=== PATIENT | male | born 2000 | race Caucasian/White ===

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

== ENCOUNTER 2023-01-07 08:27 | Emergency (ER) | payer MEDICAID ==
[~2023-01-07] VITALS: Ht 188 cm; Wt 115.9 kg
[2023-01-07 09:26] LABS: Basophils # (auto) 0 10 ^3/uL (0-0.2); Basophils % (auto) 0.4 % (0.0-2.0); Eosinophils # (auto) 0.1 10 ^3/uL (0-0.8); Hematocrit 45.3 % (41.0-53.0); Hemoglobin 15.9 g/dL (13.5-17.5); Lymphocytes # (auto) 2.6 10 ^3/uL (0.4-5.4); Mean Corpuscular Hemoglobin 30.2 pg (28.0-32.0); Mean Corpuscular Volume 86.2 fL (80.0-100.0); Monocytes # (auto) 0.4 10 ^3/uL (0-1.3); Monocytes % (auto) 7.6 % (0.0-12.0); Neutrophils # (auto) 1.8 10 ^3/uL (1.6-8.6); Nucleated Red Blood Cells % 0.3 %; Red Blood Cells 5.26 10^6/uL (4.5-5.90); Red Cell Distribution Width 12.6 % (11.8-14.3); White Blood Cell 4.8 10^3/uL (4.4-10.8)
[2023-01-07 09:49] LABS: Albumin 3.8 g/dL (3.4-5.0); Calcium 8.7 mg/dL (8.5-10.1); Potassium 3.4 mmol/L (3.5-5.1)
[2023-01-07 09:53] LABS: BUN/Creatinine Ratio 11.7; Bilirubin, Total 0.3 mg/dL (0.2-1.0); Total Protein 6.9 g/dL (6.4-8.2)
[2023-01-07] MEDS ORDERED: SODIUM CHLORIDE 0.9% 250 ML IV ONE (10:45)
[2023-01-07 14:54] VITALS: BP 102/66
== END 2023-01-07 14:56 | disposition home or self-care (01) ==
LOC: ER 08:27 → EDBD 08:27 → ER 14:55
DX: S00.93XA Contusion of unspecified part of head, initial encounter (principal); E11.649 Type 2 diabetes mellitus with hypoglycemia without coma; R56.9 Unspecified convulsions; E78.5 Hyperlipidemia, unspecified; F20.9 Schizophrenia, unspecified; F84.0 Autistic disorder; F31.9 Bipolar disorder, unspecified; W18.39XA Other fall on same level, initial encounter; Y93.89 Activity, other specified; Y92.89 Other specified places as the place of occurrence of the external cause; Y99.8 Other external cause status
CPT/HCPCS: 36415; 70450; 72125; 80053; 85025; 96365; 96366; 99285; J1953; J7030; J7060

== ENCOUNTER 2023-01-28 02:38 | Emergency (ER) | payer MEDICAID ==
[~2023-01-28] VITALS: Ht 167.6 cm; Wt 110.0 kg
[2023-01-28] MEDS ORDERED: LACTATED RINGER'S 1,000 ML IV ONE (03:45)
[2023-01-28] MEDS ORDERED: levETIRAcetam 500 MG/5ML INJ IV ONE (04:00)
[2023-01-28 04:30] LABS: Albumin 3.5 g/dL (3.4-5.0); Calcium 8.6 mg/dL (8.5-10.1); Potassium 3.1 mmol/L (3.5-5.1)
[2023-01-28 04:33] LABS: Bilirubin, Total 0.2 mg/dL (0.2-1.0); Total Protein 6.4 g/dL (6.4-8.2)
[2023-01-28 05:14] LABS: Basophils # (auto) 0 10 ^3/uL (0-0.2); Basophils % (auto) 0.5 % (0.0-2.0); Eosinophils # (auto) 0 10 ^3/uL (0-0.8); Eosinophils % (auto) 0.4 % (0.0-7.0); Hemoglobin 14.7 g/dL (13.5-17.5); Lymphocytes # (auto) 2.8 10 ^3/uL (0.4-5.4); Lymphocytes % (auto) 35.5 % (10.0-50.0); Mean Corpuscular Hemoglobin 29.8 pg (28.0-32.0); Mean Corpuscular Volume 85.4 fL (80.0-100.0); Monocytes # (auto) 0.5 10 ^3/uL (0-1.3); Monocytes % (auto) 6.7 % (0.0-12.0); Neutrophils # (auto) 4.5 10 ^3/uL (1.6-8.6); Neutrophils % (auto) 56.9 % (37.0-80.0); Nucleated Red Blood Cells % 0.6 %; Red Blood Cells 4.92 10^6/uL (4.5-5.90); White Blood Cell 7.9 10^3/uL (4.4-10.8)
[2023-01-28] MEDS ORDERED: POTASSIUM EFFERVESENT TAB 25 MEQ PO ONE (05:30)
[2023-01-28 08:05] VITALS: BP 113/57
== END 2023-01-28 08:13 | disposition home or self-care (01) ==
LOC: ER 02:38 → EDBD 02:38 → ER 08:06
DX: R56.9 Unspecified convulsions (principal); E87.6 Hypokalemia; E11.9 Type 2 diabetes mellitus without complications; E78.5 Hyperlipidemia, unspecified; F20.9 Schizophrenia, unspecified; F84.0 Autistic disorder
CPT/HCPCS: 36415; 70450; 71045; 80053; 82962; 83690; 85025; 93005; 96361; 96365; 99285; J1953; J7060

== ENCOUNTER 2023-02-27 10:54 | Emergency (ER) | payer OTHER, MEDICAID ==
[~2023-02-27] VITALS: Ht 180.3 cm; Wt 113.6 kg
[2023-02-27 11:33] LABS: Basophils # (auto) 0 10 ^3/uL (0-0.2); Basophils % (auto) 0.4 % (0.0-2.0); Eosinophils # (auto) 0.1 10 ^3/uL (0-0.8); Hemoglobin 15.2 g/dL (13.5-17.5); Lymphocytes # (auto) 2.6 10 ^3/uL (0.4-5.4); Lymphocytes % (auto) 48.3 % (10.0-50.0); Mean Corpuscular Hemoglobin 29.7 pg (28.0-32.0); Mean Corpuscular Hgb Conc. 33.7 g/dL (32.0-36.0); Mean Corpuscular Volume 88.2 fL (80.0-100.0); Monocytes # (auto) 0.4 10 ^3/uL (0-1.3); Monocytes % (auto) 7.4 % (0.0-12.0); Neutrophils # (auto) 2.3 10 ^3/uL (1.6-8.6); Neutrophils % (auto) 42.9 % (37.0-80.0); Nucleated Red Blood Cells % 0.1 %; Red Cell Distribution Width 13.2 % (11.8-14.3); White Blood Cell 5.3 10^3/uL (4.4-10.8)
[2023-02-27 12:09] LABS: Anion Gap 4 (5-15); Blood Alcohol < 3.0 mg/dL (0-5); Blood Urea Nitrogen 14 mg/dL (7-18); Calcium 9.3 mg/dL (8.5-10.1); Carbon Dioxide 23 mmol/L (21-32); Chloride 112 mmol/L (98-107); Glucose 85 mg/dL (74-106); Potassium 4.1 mmol/L (3.5-5.1); Sodium 139 mmol/L (136-145)
[2023-02-27 12:11] LABS: Alanine Aminotransferase 39 U/L (16-61); Alkaline Phosphatase 91 U/L (45-117); Aspartate Aminotransferase 28 U/L (15-37); BUN/Creatinine Ratio 12.4 (10.0-20.0); Bilirubin, Total 0.2 mg/dL (0.2-1.0); GFR African American 106 mL/min; GFR Non-African American 88 mL/min; Total Protein 7.2 g/dL (6.4-8.2)
[2023-02-27 14:48] VITALS: BP 123/61
== END 2023-02-27 14:57 | disposition home or self-care (01) ==
LOC: EDBD 10:54 → ER 10:54
DX: G40.909 Epilepsy, unspecified, not intractable, without status epilepticus (principal); E11.9 Type 2 diabetes mellitus without complications; F20.9 Schizophrenia, unspecified; E78.5 Hyperlipidemia, unspecified
CPT/HCPCS: 36415; 70450; 80053; 80320; 82962; 85025

== ENCOUNTER 2023-10-20 03:49 | Emergency (ER) | payer MEDICAID ==
[~2023-10-20] VITALS: Ht 190.5 cm; Wt 100.0 kg
[2023-10-20 04:21] VITALS: PULSE 99; RESP 18; TEMP 97.8; O2SAT 99
[2023-10-20 04:39] LABS: Basophils # (auto) 0 10 ^3/uL (0-0.2); Basophils % (auto) 0.4 % (0.0-2.0); Eosinophils # (auto) 0.1 10 ^3/uL (0-0.8); Eosinophils % (auto) 1.1 % (0.0-7.0); Hematocrit 44.2 % (41.0-53.0); Hemoglobin 15.5 g/dL (13.5-17.5); Lymphocytes # (auto) 2.9 10 ^3/uL (0.4-5.4); Mean Corpuscular Hemoglobin 29.5 pg (28.0-32.0); Mean Corpuscular Volume 84.4 fL (80.0-100.0); Monocytes # (auto) 0.4 10 ^3/uL (0-1.3); Monocytes % (auto) 5.1 % (0.0-12.0); Neutrophils # (auto) 3.7 10 ^3/uL (1.6-8.6); Neutrophils % (auto) 52.4 % (37.0-80.0); Nucleated Red Blood Cells % 0.2 %; Red Blood Cells 5.23 10^6/uL (4.5-5.90); Red Cell Distribution Width 12.9 % (11.8-14.3)
[2023-10-20 05:19] LABS: Alanine Aminotransferase 64 U/L (7-40); Alkaline Phosphatase 91 U/L (46-116); Calcium 9.4 mg/dL (8.5-10.1); Carbon Dioxide 19 mmol/L (20-30); Chloride 106 mmol/L (98-107); Glucose 143 mg/dL (74-106); Potassium 3.4 mmol/L (3.5-5.1); Sodium 139 mmol/L (136-145)
[2023-10-20 05:20] LABS: Albumin 4.4 g/dL (3.2-4.8); Anion Gap 14 (5-15); Aspartate Aminotransferase 33 U/L (13-40); BUN/Creatinine Ratio 9.2 (10.0-20.0); Bilirubin, Total 0.3 mg/dL (0.2-1.0); Blood Urea Nitrogen 9 mg/dL (9-23); Total Protein 6.9 g/dL (5.7-8.2)
[2023-10-20] MEDS ORDERED: TOPIRAMATE 100 MG TAB PO ONE (07:15)
[2023-10-20 07:55] VITALS: BP 109/72; PULSE 95; RESP 18; O2SAT 96
== END 2023-10-20 08:26 | disposition home or self-care (01) ==
LOC: ER 03:49 → EDUNIT# 03:49 → EDBD 03:49 → ER 08:26
DX: S00.33XA Contusion of nose, initial encounter (principal); R56.9 Unspecified convulsions; E11.9 Type 2 diabetes mellitus without complications; E78.5 Hyperlipidemia, unspecified; X58.XXXA Exposure to other specified factors, initial encounter; Y93.89 Activity, other specified; Y92.89 Other specified places as the place of occurrence of the external cause; Y99.8 Other external cause status
CPT/HCPCS: 36415; 70450; 80053; 82962; 85025

== ENCOUNTER 2025-09-17 18:46 | Emergency (ER) | payer MEDICAID ==
[~2025-09-17] VITALS: Ht 185.4 cm; Wt 109.0 kg
[2025-09-17] MEDS ORDERED: levETIRAcetam 1000 mg/100ml 100 ML IV ONE (19:00)
[2025-09-17 19:14] LABS: Hematocrit 25.0 % (41.0-53.0); Nucleated Red Blood Cells % 0.0 %
[2025-09-17 19:15] LABS: Hemoglobin 8.2 g/dL (13.5-17.5); Mean Corpuscular Hemoglobin 31.1 pg (28.0-32.0); Mean Corpuscular Volume 94.5 fL (80.0-100.0)
--- NOTE | 2025-09-17 19:20 | ED.PDOC ---
History of Present Illness HPI Comments 25M BIBA w/ prior MHx of Autism, SZ (med compliant), Schizo, High Lipids, DM:SHx of Brain Sx and the c/c of Sz. EMS report on picking the pt up at a [facility] due from the pt having a witnessed SZ. The pt's mother witnessed the event and wanted the pt to get checked out. Pt had a BS of 67 and was given glucose by EMS. Pt's last SZ was in April of 2025. Denies any symptoms at this time. Patient denies any CP, SOB, dizziness, numbness, weakness, tingling, fever, chills, or recent fall. Chief Complaint: Seizure Time Seen by MD: 19:00 Primary Care Provider: UNKNOWN Reviewed Notes: Nurses Notes, Medications, Allergies Allergies: Coded Allergies: Penicillins (Verified Allergy, Unknown, 02/27/23) Phenytoin (Verified Allergy, Unknown, 02/27/23) Information Source: Patient, Emergency Med Personnel Mode of Arrival: EMS Severity: Moderate Timing: Minutes Duration: Since onset, Minutes Prehospital treatment: None Past Medical History PAST MEDICAL HISTORY: DM, High Lipids, Schizophrenia, Seizures Past Medical History (Other): Autism Surgical History (Other): Brain Sx Family History Family History: Reviewed,noncontributory to illness, Unknown Social History Smoker: Non-Smoker Alcohol: Denies ETOH Use Drugs: Denies Drug Use Lives In: Home Constitutional: denies: chills, diaphoresis, fatigue, fever, malaise, sweats, weakness, others EENTM: denies: blurred vision, double vision, ear bleeding, ear discharge, ear drainage, ear pain, ear ringing, eye pain, eye redness, hearing loss, mouth pain, mouth swelling, nasal discharge, nose bleeding, nose congestion, nose pain, photophobia, tearing, throat pain, throat swelling, voice changes, others Respiratory: denies: cough, hemoptysis, orthopnea, SOB at rest, shortness of breath, SOB with excertion, stridor, wheezing, others Cardiovascular: denies: chest pain, dizzy spells, diaphoresis, Dyspnea on exertion, edema, irregular heart beat, left arm pain, lightheadedness, palpit ations, PND, syncope, others Gastrointestinal: denies: abdomen distended, abdominal pain, blood streaked b owels, constipated, diarrhea, dysphagia, difficulty swallowing, hematemesis, melena, nausea, poor appetite, poor fluid intake, rectal bleeding, rectal pain, vomiting, others Genitourinary: denies: burning, dysuria, flank pain, frequency, hematuria, incontinence, penile discharge, penile sore, pain, testicle pain, testicle swelling, urgency, others Neurological: reports: seizure; denies: dizziness, fainting, headache, left sided numbness, left sided weakness, numbness, paresthesia, pre-existing deficit, right sided numbness, right sided weakness, speech problems, tingling, tremors, weakness, others Musculoskeletal: denies: back pain, gout, joint pain, joint swelling, muscle pain, muscle stiffness, neck pain, others Integumetry: denies: bruises, change in color, change in hair/nails, dryness, laceration, lesions, lumps, rash, wounds, others Allergic/Immunocompromised: denies: Difficulty Healing, Frequent Infections, Hives, Itching, others Hematologic/Lymphatic: denies: anemia, blood clots, easy bleeding, easy bruising, swollen glands, others Endocrine: denies: excessive hunger, excessive sweating, excessive thirst, excessive urination, flushing, intolerance to cold, intolerance to heat, unexplained weight gain, unexplained weight loss, others Psychiatric: denies: anxiety, bipolar disorder, depression, hopeless, panic di sorder, schizophrenia, sleepless, suicidal, others All Other Systems: Reviewed and Negative Physical Exam General Appearance: No Apparent Distress, Normal HEENT: Normal ENT Inspection, Pharynx Normal, TMs Normal Neck: Full Range of Motion, Non-Tender, Normal, Normal Inspection Respiratory: Chest Non-Tender, Lungs Clear, No Accessory Muscle Use, No Respiratory Distress, Normal Breath Sounds Cardiovascular: No Edema, No JVD, No Murmur, No Gallop, Normal Peripheral Pulses, Regular Rate/Rhythm Breast Exam: Deferred Gastrointestinal: No Organomegaly, Non Tender, No Pulsatile Mass, Normal Bowel Sounds, Soft Genitalia: Deferred Pelvic: Deferred Rectal: Deferred Extremities: No calf tenderness, Normal capillary refill, Normal inspection, Normal range of motion, Non-tender, No pedal edema Musculoskeletal : Apperance: Normal Neurologic: Alert, check grader II-XII nml as Tested, No Motor Deficits, Normal Affect, Normal Mood, No Sensory Deficits Cerebellar Function: Normal Reflexes: Normal Skin: Dry, Normal Color, Warm Lymphatic: No Adenopathy Was a procedure done? Was a procedure done?: No Differential Dx Considerations may include: Breakthrough seizure X-Ray, Labs, Meds, VS Vital Signs Date Time Temp Pulse Resp B/P (MAP) Pulse Ox O2 Delivery O2 Flow Rate FiO2 09/17/25 18:51 97.8 86 18 104/64 93 97.8 Lab Test 09/17/25 21:20 09/17/25 20:36 09/17/25 18:51 Range/Units Levetiracetam Level Pending White Blood Count 14.7 H 17.0 H 4.4-10.8 10^3/uL Red Blood Count 5.42 2.64 L 4.5-5.90 10^6/uL Hemoglobin 16.8 # 8.2 L 13.5-17.5 g/dL Hematocrit 48.0 # 25.0 L 41.0-53.0 % Mean Corpuscular Volume 88.7 # 94.5 80.0-100.0 fL Mean Corpuscular Hemoglobin 31.0 31.1 28.0-32.0 pg Mean Corpuscular Hemoglobin Concent 35.0 32.9 32.0-36.0 g/dL Red Cell Distribution Width 12.8 15.2 H 11.8-14.3 % Platelet Count 270 241 140-450 10^3/uL Mean Platelet Volume 7.9 7.8 6.9-10.8 fL Neutrophils (%) (Auto) 82.0 H 90.2 H 37.0-80.0 % Lymphocytes (%) (Auto) 12.0 3.5 L 10.0-50.0 % Monocytes (%) (Auto) 5.5 6.1 0.0-12.0 % Eosinophils (%) (Auto) 0.3 0.1 0.0-7.0 % Basophils (%) (Auto) 0.2 0.1 0.0-2.0 % Neutrophils # (Auto) 12.0 H 15.3 H 1.6-8.6 10 ^3/uL Lymphocytes # (Auto) 1.8 0.6 0.4-5.4 10 ^3/uL Monocytes # (Auto) 0.8 1.0 0-1.3 10 ^3/uL Eosinophils # (Auto) 0 0 0-0.8 10 ^3/uL Basophils # (Auto) 0 0 0-0.2 10 ^3/uL Nucleated Red Blood Cells 0.1 0.0 % Sodium Level 144 # 131 L 136-145 mmol/L Potassium Level 3.2 L 4.3 3.5-5.1 mmol/L Chloride Level 109 H 100 98-107 mmol/L Carbon Dioxide Level 24 17 L 20-31 mmol/L Anion Gap 11 14 5-15 Blood Urea Nitrogen 11 # 73 H 9-23 mg/dL Creatinine 1.10 # 4.93 H 0.700-1.30 mg/dL Glomerular Filtration Rate Calc 97 16 >90 mL/min BUN/Creatinine Ratio 10.0 14.8 10.0-20.0 Serum Glucose 44 #*L 169 H 74-106 mg/dL Calcium Level 9.9 9.6 8.7-10.4 mg/dL Total Bilirubin 0.2 0.2-1.0 mg/dL Aspartate Amino Transferase (AST) 20 13-40 U/L Alanine Aminotransferase (ALT) 28 7-40 U/L Alkaline Phosphatase 74 46-116 U/L Total Protein 7.8 5.7-8.2 g/dL Albumin 5.0 H 3.2-4.8 g/dL X-Ray, Labs, Meds, VS Comment Initial CBC and BMP showed significant deviations from normal. Call was made to [facility] to review prior labs. Labs from April were all within normal range. CBC and CMP were redrawn as a precaution for air. Redraw of the CBC and CMP shows significant improvements. There is an elevated white count but that it his within reason normal after seizure. Patient A&O x4 acting appropriately Patient will be discharged home, advised to follow up with [facility] neurologist next available appointment Time of 1ST Reevaluation: 19:30 Reevaluation 1ST: Unchanged Patient Education/Counseling: Diagnosis, Treatment, Prognosis, Need For Follow Up (Follow up with PCP next available appointment.) Family Education/Counseling: No Family Present SEPSIS Sepsis Screen Physician Orders Urinalysis (09/17/25 19:00) Levetiracetam (Keppra) (09/17/25 19:00) Vital Signs Date Time Temp Pulse Resp B/P (MAP) Pulse Ox O2 Delivery O2 Flow Rate FiO2 09/17/25 18:51 97.8 86 18 104/64 93 97.8 Laboratory Tests Test 09/17/25 18:51 09/17/25 20:36 White Blood Count 17.0 10^3/uL (4.4-10.8) H 14.7 10^3/uL (4.4-10.8) H Departure 1 Departure Time of Disposition: 22:02 Impression: Primary Impression: Seizure Disposition: 01 HOME / SELF CARE / HOMELESS Condition: Stable Discharged With: Self Critical Care Note Critical Care Time?: No Stability Stability form required: No Heart Score Heart Score: Heart Score Response (Comments) Value History N/A 0 EKG N/A 0 Age N/A 0 Risk Factors N/A 0 Troponin N/A 0 Total 0 I personally scribed for GREGORIO HUTCHINSON ([email or web address]) on 09/17/25 at 19:20. Electronically submitted by Toribio Severino ([email or web address]). GREGORIO HUTCHINSON Sep 17, 2025 19:20
[2025-09-17 19:22] LABS: Chloride 100 mmol/L (98-107); Potassium 4.3 mmol/L (3.5-5.1)
[2025-09-17 19:23] LABS: Anion Gap 14 (5-15); Calcium 9.6 mg/dL (8.7-10.4)
[2025-09-17 19:28] LABS: BUN/Creatinine Ratio 14.8 (10.0-20.0); Blood Urea Nitrogen 73 mg/dL (9-23); Carbon Dioxide 17 mmol/L (20-31); Glucose 169 mg/dL (74-106); Sodium 131 mmol/L (136-145)
[2025-09-17 20:00] VITALS: TEMP 97.8
[2025-09-17] MEDS ORDERED: SODIUM CHLORIDE 0.9% 1,000 ML IV ONE (20:15)
[2025-09-17 20:48] LABS: Hematocrit 48.0 % (41.0-53.0); Hemoglobin 16.8 g/dL (13.5-17.5); Mean Corpuscular Hemoglobin 31.0 pg (28.0-32.0); Mean Corpuscular Volume 88.7 fL (80.0-100.0); Nucleated Red Blood Cells % 0.1 %
[2025-09-17 21:03] LABS: Alanine Aminotransferase 28 U/L (7-40); Alkaline Phosphatase 74 U/L (46-116); Anion Gap 11 (5-15); BUN/Creatinine Ratio 10.0 (10.0-20.0); Blood Urea Nitrogen 11 mg/dL (9-23); Calcium 9.9 mg/dL (8.7-10.4); Carbon Dioxide 24 mmol/L (20-31); Sodium 144 mmol/L (136-145); Total Protein 7.8 g/dL (5.7-8.2)
[2025-09-17 21:47] LABS: Albumin 5.0 g/dL (3.2-4.8); Bilirubin, Total 0.2 mg/dL (0.2-1.0); Chloride 109 mmol/L (98-107); Potassium 3.2 mmol/L (3.5-5.1)
[2025-09-17 21:49] LABS: Glucose 44 mg/dL (74-106)
[2025-09-17 22:00] VITALS: BP 125/73
[2025-09-17 22:34] VITALS: PULSE 83; RESP 16; O2SAT 92
== END 2025-09-17 22:49 | disposition home or self-care (01) ==
LOC: EDBD 18:46 → ER 18:46
DX: R56.9 Unspecified convulsions (principal); E11.9 Type 2 diabetes mellitus without complications; F20.9 Schizophrenia, unspecified; F84.0 Autistic disorder; Z88.0 Allergy status to penicillin; Z88.8 Allergy status to other drugs, medicaments and biological substances
CPT/HCPCS: 36415; 80048; 80053; 82542; 85025

== ENCOUNTER 2025-10-06 18:12 | Emergency (ER) | payer MEDICAID ==
[~2025-10-06] VITALS: Ht 182.9 cm; Wt 119.5 kg
[2025-10-06 18:36] VITALS: PULSE 83; RESP 20; O2SAT 94
[2025-10-06] MEDS ORDERED: DEXTROSE (50%) 50ML SYRG IV PRN (18:45)
[2025-10-06] MEDS: DEXTROSE (50%) 50ML SYRG IV PRN (18:55)
--- NOTE | 2025-10-06 18:56 | ED.PDOC ---
History of Present Illness HPI Comments 25-year-old male who came to ER via EMS for seizures. Mother at bedside. Patient does have history of seizures and diabetes. Last seizure episode was a month ago. Does take Trileptal and Topamax with good compliance. Takes insulin and semglee for his diabetes. Patient was at the [employer], any other with a seizure episode lasting about a minute. Patient apparently fell on his left side, complaining of left shoulder and left neck pain. Blood sugar on scene was 49. Mother states patient has taken his insulin at 4:30 p.m. and has not eaten since. Chief Complaint: Seizure Time Seen by MD: 18:54 Primary Care Provider: UNKNOWN Reviewed Notes: Nurses Notes Allergies: Coded Allergies: Cranberry Extract (Verified Allergy, Unknown, 10/06/25) Penicillins (Verified Allergy, Unknown, 02/27/23) Phenytoin (Verified Allergy, Unknown, 02/27/23) Information Source: Patient, Relative (Mother) Mode of Arrival: EMS Past Medical History PAST MEDICAL HISTORY: DM, High Lipids, Schizophrenia, Seizures Family History Family History: Reviewed,noncontributory to illness, Unknown Social History Smoker: Non-Smoker Alcohol: Denies ETOH Use Drugs: Denies Drug Use Lives In: Home Was a procedure done? Was a procedure done?: No Differential Dx Considerations may include: Differential diagnoses considered include but are not limited to epilepsy/seizure disorder, [employer] infection, electrolyte disturbance, CVA, TBI, drug toxicity or overdose, hypoxia, hypertensive emergency, brain tumor/mass, syncope, movement disorder, other X-Ray, Labs, Meds, VS Vital Signs Date Time Temp Pulse Resp B/P (MAP) Pulse Ox O2 Delivery O2 Flow Rate FiO2 10/06/25 19:40 83 20 99 Room Air* 0 21 10/06/25 19:40 98.6 83 20 118/55 (76) 99 98.6 10/06/25 18:36 83 20 94 Room Air* 0 21 10/06/25 18:36 97.6 83 20 112/72 (85) 94 97.6 10/06/25 18:12 98.9 100 14 131/79 97 98.9 Lab Test 10/06/25 20:26 10/06/25 20:25 10/06/25 18:56 Range/Units Urine Color Colorless Yellow Urine Clarity Clear Clear Urine pH 6.5 5.0-9.0 Urine Specific [place] 1.009 1.001-1.035 Urine Protein Negative Negative Urine Ketones Negative Negative Urine Blood Negative Negative /uL Urine Nitrite Negative Negative Urine Bilirubin Negative Negative Urine Urobilinogen Normal Negative mg/dL Urine Leukocyte Esterase Negative Negative /uL Urine RBC None seen 0 - 3 /hpf Urine Microscopic WBC < 1 0-3 /HPF Urine Squamous Epithelial Cells None seen <5 /hpf Urine Bacteria None seen None Seen /hpf Urine Glucose 1+ H Normal mg/dL POC Glucose 152 H 70-106 mg/dl White Blood Count 7.2 4.4-10.8 10^3/uL Red Blood Count 5.33 4.5-5.90 10^6/uL Hemoglobin 16.2 13.5-17.5 g/dL Hematocrit 47.0 41.0-53.0 % Mean Corpuscular Volume 88.2 80.0-100.0 fL Mean Corpuscular Hemoglobin 30.4 28.0-32.0 pg Mean Corpuscular Hemoglobin Concent 34.4 32.0-36.0 g/dL Red Cell Distribution Width 12.6 11.8-14.3 % Platelet Count 251 140-450 10^3/uL Mean Platelet Volume 8.2 6.9-10.8 fL Neutrophils (%) (Auto) 53.1 37.0-80.0 % Lymphocytes (%) (Auto) 37.9 10.0-50.0 % Monocytes (%) (Auto) 7.6 0.0-12.0 % Eosinophils (%) (Auto) 0.9 0.0-7.0 % Basophils (%) (Auto) 0.5 0.0-2.0 % Neutrophils # (Auto) 3.8 1.6-8.6 10 ^3/uL Lymphocytes # (Auto) 2.7 0.4-5.4 10 ^3/uL Monocytes # (Auto) 0.6 0-1.3 10 ^3/uL Eosinophils # (Auto) 0.1 0-0.8 10 ^3/uL Basophils # (Auto) 0 0-0.2 10 ^3/uL Nucleated Red Blood Cells 0.2 % Sodium Level 143 136-145 mmol/L Potassium Level 3.6 3.5-5.1 mmol/L Chloride Level 108 H 98-107 mmol/L Carbon Dioxide Level 22 20-31 mmol/L Anion Gap 13 5-15 Blood Urea Nitrogen 8 L 9-23 mg/dL Creatinine 1.02 0.700-1.30 mg/dL Glomerular Filtration Rate Calc 106 >90 mL/min BUN/Creatinine Ratio 7.8 L 10.0-20.0 Serum Glucose 40 *L 74-106 mg/dL Calcium Level 9.5 8.7-10.4 mg/dL Total Bilirubin 0.3 0.2-1.0 mg/dL Aspartate Amino Transferase (AST) 26 13-40 U/L Alanine Aminotransferase (ALT) 25 7-40 U/L Alkaline Phosphatase 77 46-116 U/L Total Protein 7.7 5.7-8.2 g/dL Albumin 4.9 H 3.2-4.8 g/dL Current Medications Medications (Trade) Dose Ordered Sig/Dillon Route Start Time Stop Time Status Last Admin Dextrose 50 ml PRN PRN IV 10/06/25 18:45 10/06/25 18:55 Diagnostic Test (Pha) (Accu-Chek Comfort Curve T) 1 strip ONCE ONCE 10/06/25 21:15 10/06/25 21:16 DC 10/06/25 21:18 Diagnostic Test (Pha) (Accu-Chek Comfort Curve T) 1 strip ONCE STAT 10/06/25 18:41 10/06/25 18:50 DC 10/06/25 19:04 Time of 1ST Reevaluation: 18:51 Reevaluation 1ST: Unchanged Patient Education/Counseling: Need For Follow Up Family Education/Counseling: No Family Present SEPSIS Sepsis Screen Date sepsis recognized/suspect: Oct 06, 2025 Time Sepsis recognized/suspect: 1811 Recent Procedure: No On Antibiotic Therapy: No Respiratory Rate >20: No Heart Rate >90: Yes Temp<36 C (96.8 F) or >38.3 C: No SBP <90 or MAP <65 mmHG: No New Acute Mental Status Change: No Is the patient on CPAP, BIPAP,: No Physician Orders Regular Diet (10/07/25 Breakfast) Seizure Precautions (10/06/25 ) Titrate Oxygen (10/06/25 18:41) Oxygen (10/06/25 ) Continous Pulse Oximetry (10/06/25 18:41) Saline Lock (10/06/25 18:41) Av Specialist (10/06/25 ) Dextrose 50% Syringe (10/06/25 18:45) Dextrose 50% Syringe (10/06/25 18:45) Electrocardigram (10/06/25 18:54) Cervical Without Contrast (10/06/25 21:48) Vital Signs Date Time Temp Pulse Resp B/P (MAP) Pulse Ox O2 Delivery O2 Flow Rate FiO2 10/06/25 19:40 83 20 99 Room Air* 0 21 10/06/25 19:40 98.6 83 20 118/55 (76) 99 98.6 10/06/25 18:36 83 20 94 Room Air* 0 21 10/06/25 18:36 97.6 83 20 112/72 (85) 94 97.6 10/06/25 18:12 98.9 100 14 131/79 97 98.9 Laboratory Tests Test 10/06/25 18:56 White Blood Count 7.2 10^3/uL (4.4-10.8) Medications Medications Dose Ordered Sig/Dillon Route Start Time Stop Time Status Last Admin Dose Admin Dextrose 50 ml PRN PRN IV 10/06/25 18:45 10/06/25 18:55 Diagnostic Test (Pha) 1 strip ONCE ONCE 10/06/25 21:15 10/06/25 21:16 DC 10/06/25 21:18 Diagnostic Test (Pha) 1 strip ONCE STAT 10/06/25 18:41 10/06/25 18:50 DC 10/06/25 19:04 Departure 1 Departure Time of Disposition: 23:26 Impression: Primary Impression: Hypoglycemia Additional Impression: Seizure Disposition: 01 HOME / SELF CARE / HOMELESS Condition: Good Additional Instructions: ED DISCHARGE INSTRUCTIONS Instructions: Please read all instructions provided in this packet carefully. Although you have been discharged from the Emergency Department, this does not mean that you have a "clean bill of health". No definitive diagnosis for your symptoms has been made today. It is possible that you are in the process of developing a serious illness. This is why you must return to the ED without fail if any new or worsening symptoms (especially if your symptoms include chest pain, trouble breathing, abdominal pain, fever, headache, confusion, trouble seeing, or trouble walking) It is also very important that you see a primary care provider (PCP) within the next 24 hours to follow up. If you are unable to get an appointment, return to the ED for re-evaluation. Hypoglycemia: Care Instructions Hypoglycemia means that your blood sugar is low and your body isnt getting enough fuel. Low blood sugar can be caused by too much insulin or certain medicines. Some people get low blood sugar from missing a meal or exercising too hard without eating enough food. Know your signs of low blood sugar. They're different for everyone. Common early signs include nausea; hunger; and feeling nervous, irritable, or shaky. It can help to check your blood sugar levels often. Take your insulin or other medicine as prescribed. How can you care for yourself? Use the "rule of 15" to treat low blood sugar.Eat 15 grams of carbohydrate fr om a quick-sugar food (such as 3 or 4 glucose tablets or 1/2 cup of juice). Wait 15 minutes and check your blood sugar. Repeat if your blood sugar is still below 70 mg/dL. Eat after your blood sugar is in a safe range.A snack or meal can reduce symptoms and prevent low blood sugar from coming back. Tell friends, family, and coworkers how they can help you.Make sure that they know the symptoms of low blood sugar and how to help you get your sugar levels up. If you have glucagon, keep it with you.Make sure that your friends, family, and coworkers know how to use it. When should you call for help? Call 911 anytime you think you may need emergency care. For example, call if: You passed out (lost consciousness). You are confused or cannot think clearly. Your blood sugar is very high or very low. Watch closely for changes in your health, and be sure to contact your doctor if: Your blood sugar stays outside the level your doctor set for you. You have any problems. Credits for Hypoglycemia: Care Instructions Current as of: April 28, 2025 Author: [employer] Staff Clinical Review Board All [employer] education is reviewed by a team that includes physicians, nurses, advanced practitioners, registered dieticians, and other healthcare professionals. Comments 25-year-old male with a history of seizure disorder with apparent seizure after hypoglycemic episode. Patient is back to baseline neurologically at this time. He has been able to tolerate p.o.. Blood sugar improved. Patient felt stable for discharge home to follow up with primary care provider. Discussed with [facility] physician . We will arrange for outpatient follow up with the primary care provider. Critical Care Note Critical Care Time?: No Stability Stability form required: No Heart Score Heart Score: Heart Score Response (Comments) Value History N/A 0 EKG N/A 0 Age N/A 0 Risk Factors N/A 0 Troponin N/A 0 Total 0 I personally scribed for NANCY TARIQ MD ([email or web address]) on 10/06/25 at 18:56. Electronically submitted by Saud Arteaga ([employer]). I personally scribed for NANCY TARIQ MD ([email or web address]) on 10/06/25 at 18:57. Electronically submitted by Saud Arteaga ([employer]). NANCY TARIQ MD Oct 06, 2025 18:56
[2025-10-06] MEDS: ACCU-CHEK COMFORT CURVE STRIP VI STA (19:04)
[2025-10-06 19:06] LABS: Hematocrit 47.0 % (41.0-53.0); Hemoglobin 16.2 g/dL (13.5-17.5); Mean Corpuscular Hemoglobin 30.4 pg (28.0-32.0); Mean Corpuscular Volume 88.2 fL (80.0-100.0); Nucleated Red Blood Cells % 0.2 %
[2025-10-06] MEDS: DEXTROSE 50% SYRINGE 50 ML IV ONE (19:19)
[2025-10-06 19:23] LABS: Alanine Aminotransferase 25 U/L (7-40); Alkaline Phosphatase 77 U/L (46-116); Anion Gap 13 (5-15); BUN/Creatinine Ratio 7.8 (10.0-20.0); Calcium 9.5 mg/dL (8.7-10.4); Carbon Dioxide 22 mmol/L (20-31); Potassium 3.6 mmol/L (3.5-5.1); Sodium 143 mmol/L (136-145); Total Protein 7.7 g/dL (5.7-8.2)
[2025-10-06 19:26] LABS: Albumin 4.9 g/dL (3.2-4.8); Bilirubin, Total 0.3 mg/dL (0.2-1.0); Blood Urea Nitrogen 8 mg/dL (9-23); Chloride 108 mmol/L (98-107)
[2025-10-06 19:28] LABS: Glucose 40 mg/dL (74-106)
[2025-10-06 19:40] VITALS: PULSE 83; RESP 20; TEMP 98.6; O2SAT 99
[2025-10-06 20:42] LABS: Urine Protein, UAD Negative (Negative)
[2025-10-06] MEDS: ACCU-CHEK COMFORT CURVE STRIP VI ONE (21:18)
--- NOTE | 2025-10-06 22:29 | DVH ---
CLINICAL HISTORY: Pain, status post fall TECHNIQUE: CT exam of the cervical spine was performed without intravenous contrast. This exam was performed according to our departmental dose optimization program. Up-to-date CT equipment and radiation dose reduction techniques are utilized as appropriate. CTDI: 24.33 DLP: 729.7 WID: COMPARISON: CT CERVICAL WITHOUT CONTRAST on DOS: 01/07/23 FINDINGS: There is normal cervical alignment. The vertebral body heights are maintained. No acute cervical fracture or subluxation is identified. No significant central or neural foraminal narrowing is identified. The paraspinous soft tissues are unremarkable. The lung apices are clear. Small fluid level in the left sphenoid sinus and left maxillary sinus partially imaged. IMPRESSION: 1. No acute fracture or traumatic malalignment. 2. Small fluid levels in the left sphenoid and maxillary sinuses. Correlate clinically for acute sinusitis.
[2025-10-06 23:47] VITALS: BP 131/82; PULSE 86; RESP 16; O2SAT 96
== END 2025-10-06 23:50 | disposition home or self-care (01) ==
LOC: EDBD 18:12 → ER 18:12 → EDUNIT# 18:12 → ER 23:50
DX: E16.2 Hypoglycemia, unspecified (principal); R56.9 Unspecified convulsions; Z79.899 Other long term (current) drug therapy; Z88.0 Allergy status to penicillin
CPT/HCPCS: 36415; 72125; 80053; 81001; 82947; 85025; 96374; 99285; J7042; 82962